=== PATIENT | male | born 1970 | race Hispanic/Latino ===

== ENCOUNTER 2017-10-28 14:30 | Inpatient (IN) | payer BC, OTHER ==
[~2017-10-28] VITALS: Ht 170.2 cm; Wt 83.5 kg
[2018-10-06 14:26] VITALS: BP 155/85
[2018-10-06 14:37] LABS: INR 1.02 (0.85-1.15); PARTIAL THROMBOPLASTIN TIME 28.7 SEC (26.3-35.5); PROTHROMBIN TIME 10.7 SEC (9.6-11.6)
[2018-10-06] MEDS ORDERED: UMEC1DIS IH (14:54)
[2018-10-06] MEDS ORDERED: LISI-613 PO (14:54)
[2018-10-06] MEDS ORDERED: OZEMPIC SQ (14:54)
[2018-10-06] MEDS ORDERED: NAPR-1023 PO (14:54)
[2018-10-06] MEDS ORDERED: LEVO125T95 PO (14:54)
[2018-10-06] MEDS ORDERED: TRAM50TA4 PO (14:54)
[2018-10-06 14:56] LABS: APPEARANCE,URINE Clear (CLEAR); BILIRUBIN,URINE Negative (NEGATIVE); COLOR,URINE Yellow (YELLOW); GLUCOSE, URINE (UA) >=1000 mg/dL (NEGATIVE); KETONES,URINE Negative (NEGATIVE); LEUKOCYTE ESTERASE ,URINE Negative (NEGATIVE); NITRATE,URINE Negative (NEGATIVE); OCCULT BLOOD,URINE Negative (NEGATIVE); PROTEIN,URINE Negative (NEGATIVE); UROBILINOGEN,URINE 0.2 mg/dL (0.2-1.0)
[2018-10-06 15:18] LABS: BACTERIA,URINE Rare /HPF (None Seen); RBC,URINE None Seen /HPF (0-1); SQUAMOUS EPITHELIAL CELL,UR None Seen /HPF (0-2); WBC,URINE None Seen /HPF (0-1)
[2018-10-07] MEDS: CLINDAMYCIN 900 MG/D5% WATER 50 ML IV SCH (15:30)
[2018-10-08] MEDS: CLINDAMYCIN 900 MG/D5% WATER 50 ML IV SCH (15:30)
[2018-10-09] VITALS (21 sets, daily range): BP systolic 99–150; BP diastolic 66–99
[2018-10-09] MEDS: CLINDAMYCIN 900 MG/D5% WATER 50 ML IV SCH ×3 (08:00→15:30)
[2018-10-09] MEDS ORDERED: CLINDAMYCIN PHOSPHATE 150 MG/ML 6ML VIAL ONE (08:30)
[2018-10-09] MEDS ORDERED: ACETAMINOPHEN EXTRA STRENGTH 500 MG TABLET ONE (08:45)
[2018-10-09] MEDS ORDERED: METOCLOPRAMIDE 10 MG/2 ML VIAL ONE (08:45)
[2018-10-09] MEDS ORDERED: SODIUM CHLORIDE 0.9% 1000ML 1,000 ML IV ONE (08:46)
[2018-10-09] MEDS ORDERED: CELECOXIB 200 MG CAP ONE (08:46)
[2018-10-09] MEDS ORDERED: OXYCODONE HCL 10 MG TAB.SR.12H PO ONE (08:46)
[2018-10-09] MEDS ORDERED: KETOROLAC TROMETHAMINE 15MG/ML ONE (08:46)
--- NOTE | 2018-10-09 09:14 | NUR ---
POTENTIAL FOR INFECTION: SHAVED LEFT HIP FOLLOWED BY WIPING WITH OBINNA: 2% CHLORHEXIDINE GLUCONATE CLOTH PATIENTS PRE-OP PREP
[2018-10-09] MEDS ORDERED: TRANEXAMIC ACID 1000MG/10ML IV ONE ×2 (10:28→14:22)
[2018-10-09] MEDS ORDERED: ONDANSETRON HCL 4 MG/2 ML VIAL ONE (11:13)
[2018-10-09] MEDS ORDERED: SUCCINYLCHOLINE 200MG/10ML SYR ONE (11:13)
[2018-10-09] MEDS ORDERED: DEXAMETHASONE SOD PHOSPHATE 10MG/ML 1ML VIAL ONE (11:13)
[2018-10-09] MEDS ORDERED: LIDOCAINE PF 2% 5ML ABBOJECT ONE (11:13)
[2018-10-09] MEDS ORDERED: MIDAZOLAM HCL 1 MG/ML 2ML VIAL ONE (11:14)
[2018-10-09] MEDS ORDERED: NEOSTIGMINE 5MG/5ML SYR IV ONE (11:14)
[2018-10-09] MEDS ORDERED: PROPOFOL 10 MG/ML 20ML VIAL IV ONE (11:14)
[2018-10-09] MEDS ORDERED: GLYCOPYRROLATE 1 MG/5 ML SYRINGE ONE (11:14)
[2018-10-09] MEDS ORDERED: ROCURONIUM 10MG/1ML SYR 10 MG/ML ML ONE ×2 (11:14→12:27)
[2018-10-09] MEDS ORDERED: FENTANYL CITRATE PF 50 MCG/1 ML 2ML VIAL ONE ×2 (11:15→12:25)
[2018-10-09] MEDS ORDERED: VANCOMYCIN HCL 1 GM VIAL ONE (13:31)
[2018-10-09] MEDS ORDERED: POTASSIUM CHLORIDE 20 MEQ ERTAB PO PRN (14:00)
[2018-10-09] MEDS ORDERED: ONDANSETRON HCL 4 MG/2 ML VIAL IVP PRN (14:00)
[2018-10-09] MEDS ORDERED: KETOROLAC TROMETHAMINE 15MG/ML IV PRN (14:00)
[2018-10-09] MEDS ORDERED: DiphenhydrAMINE HCL 50 MG/ML VIAL IVP PRN (14:00)
[2018-10-09] MEDS ORDERED: FERROUS FUMARATE 324 MG TABLET PO PRN (14:00)
[2018-10-09] MEDS ORDERED: CALCIUM CARBONATE 500 MG TABLET PO PRN (14:00)
[2018-10-09] MEDS ORDERED: TEMAZEPAM 15 MG CAPSULE PO PRN (14:00)
[2018-10-09] MEDS ORDERED: LIDOCAINE HCL-MPF 1% 2ML VIAL IVP PRN (14:00)
[2018-10-09] MEDS ORDERED: POTASSIUM CHLORIDE 20MEQ/100ML 100 ML IV PRN (14:00)
[2018-10-09] MEDS ORDERED: TRAMADOL HCL 50 MG TABLET PO PRN (14:00)
[2018-10-09] MEDS ORDERED: POTASSIUM CHLORIDE 10% ELIXIR 20 MEQ/15 ML UDCUP PO PRN (14:00)
[2018-10-09] MEDS: ACETAMINOPHEN EXTRA STRENGTH 500 MG TABLET PO SCH ×2 (14:00→23:20)
[2018-10-09] MEDS ORDERED: LABETALOL 20 MG/4 ML DISP.SYRIN IV ONE (14:36)
--- NOTE | 2018-10-09 15:17 | NUR ---
POST SURGERY RECEIVED FROM PACU IN STABLE CONDITION. NO C/O PAIN AT THIS TIME. DRESSING TO THE LEFT HIP IS DRY AND INTACT. FAMILY IS PRESENT IN ROOM. ALL HAVE BEEN ORIENTED TO ROOM AND USE OF CALL LIGHT. POST OP VITAL SIGNS HAVE BEEN INITIATED. BED IS IN LOWEST POSITION AND LOCKED WITH PERSONAL BELONGINGS WITHIN REACH. WILL CONTINUE TO MONITOR.
--- NOTE | 2018-10-09 16:10 | NUR ---
DCP CM met with pt and spouse discussed dc plans. Pt is independent prior to admission, lives at home with spouse and son. Denies any equipments/services. Pt agreeable for home w/HH and DME, DENIZ signed for [facility] HH and [facility] DME. Faxed order and clinicals to [facility] HH and [facility] DME. Pt pending approval for HH as well as approval and delivery for standard walker and 3 in 1 chair w/[employer]. DC plan to home w/HH and DME. CM to cont to follow up. Addendum: 10/09/18 at 1612 by ALTAGRACIA WARD LVN CM Amended: Links added.
[2018-10-09] MEDS: SODIUM CHLORIDE 0.9% 1000ML 1,000 ML IV SCH ×2 (16:57→23:19)
[2018-10-09] MEDS: OXYCODONE HCL 5 MG TAB PO PRN ×2 (17:54→23:21)
[2018-10-09] MEDS: IPRATROPIUM/ALBUTEROL SULFATE 3 ML SOLUTION IH SCH (18:12)
[2018-10-09] MEDS ORDERED: GLUCAGON 1MG KIT 1 MG ML IM PRN (18:15)
[2018-10-09] MEDS ORDERED: DEXTROSE 50%-WATER 50 ML DISP.SYRIN IV PRN (18:15)
[2018-10-09] MEDS: ASPIRIN 325 MG TABLET PO SCH (20:05)
[2018-10-09] MEDS: PREGABALIN 25 MG CAP PO SCH (20:05)
[2018-10-09] MEDS: CELECOXIB 200 MG CAP PO SCH (20:05)
[2018-10-09] MEDS: LISINOPRIL 20 MG TABLET PO SCH (20:05)
[2018-10-09] MEDS: FAMOTIDINE 20MG TAB 20 MG TAB PO SCH (20:05)
[2018-10-09] MEDS: CLINDAMYCIN 900 MG/D5% WATER 50 ML IVPB SCH (20:08)
[2018-10-09] MEDS: INSULIN HUMULIN R 100 UNIT/ML 3ML SQ SCH (20:14)
[2018-10-10] VITALS (7 sets, daily range): BP systolic 104–122; BP diastolic 60–75
[2018-10-10] MEDS: IPRATROPIUM/ALBUTEROL SULFATE 3 ML SOLUTION IH SCH ×4 (00:19→19:00)
[2018-10-10] MEDS: CLINDAMYCIN 900 MG/D5% WATER 50 ML IVPB SCH (02:56)
[2018-10-10 04:26] LABS: HEMATOCRIT 32.7 % (42-54); MEAN CORPUSCULAR HEMOGLOBIN 30.1 pg (27.0-33.0); MEAN CORPUSCULAR HGB CONC 36.3 g/dL (32.0-36.0); PLATELET COUNT (AUTO) 169 K/uL (130-400); RED BLOOD CELL COUNT(AUTO) 3.94 MIL/uL (4.50-6.20); RED CELL DISTRIBUTION WIDTH 14.9 % (11.0-15.5); WHITE BLOOD COUNT (AUTO) 10.9 K/uL (4.8-10.8)
[2018-10-10 04:49] LABS: CREATININE 0.9 mg/dL (0.5-1.5); POTASSIUM 4.2 mmol/L (3.5-5.1)
[2018-10-10] MEDS ORDERED: LEVOTHYROXINE 125 MCG TABLET ONE (05:08)
[2018-10-10] MEDS: LEVOTHYROXINE 125 MCG TABLET PO SCH (05:09)
[2018-10-10] MEDS: ACETAMINOPHEN EXTRA STRENGTH 500 MG TABLET PO SCH ×3 (05:09→21:19)
[2018-10-10] MEDS: INSULIN HUMULIN R 100 UNIT/ML 3ML SQ SCH ×7 (05:33→20:30)
[2018-10-10] MEDS: TAMSULOSIN HCL 0.4 MG CAP.ER.24H PO SCH (09:00)
[2018-10-10] MEDS: FAMOTIDINE 20MG TAB 20 MG TAB PO SCH ×2 (09:40→19:43)
[2018-10-10] MEDS: PREGABALIN 25 MG CAP PO SCH ×2 (09:40→19:42)
[2018-10-10] MEDS: POLYETHYLENE GLYCOL 3350 17 GM POWD.PACK PO SCH (09:40)
[2018-10-10] MEDS: CELECOXIB 200 MG CAP PO SCH ×2 (09:41→19:42)
[2018-10-10] MEDS: ASPIRIN 325 MG TABLET PO SCH ×2 (09:41→19:42)
[2018-10-10] MEDS: OXYCODONE HCL 5 MG TAB PO PRN ×3 (09:48→23:55)
[2018-10-10] MEDS: SODIUM CHLORIDE 0.9% 1000ML 1,000 ML IV SCH (09:58)
--- NOTE | 2018-10-10 13:13 | NUR ---
CM Note: [facility] approval and acceptance Spoke to Duc kingston/JACK RODRIGUEZ, pt has approval and acceptance. Primary nurse aware. CM to cont to follow up.
--- NOTE | 2018-10-10 13:14 | NUR ---
CM Note: [facility] DME approval for standard walker and 3 in 1 chair, pending delivery in pt room Spoke to [facility], pt has been approved for standard walker and 3 in 1 chair, will have dme delivered in pt's room today. Primary nurse made aware. Safe to DC to home via private car once DME delivered. CM to cont to follow up.
[2018-10-10] MEDS: LISINOPRIL 20 MG TABLET PO SCH (19:43)
[2018-10-11] MEDS: IPRATROPIUM/ALBUTEROL SULFATE 3 ML SOLUTION IH SCH ×3 (00:09→11:17)
[2018-10-11 04:00] VITALS: BP 127/82
[2018-10-11] MEDS: OXYCODONE HCL 5 MG TAB PO PRN ×3 (04:26→14:47)
[2018-10-11] MEDS: ACETAMINOPHEN EXTRA STRENGTH 500 MG TABLET PO SCH ×2 (05:20→14:47)
[2018-10-11] MEDS: LEVOTHYROXINE 125 MCG TABLET PO SCH (05:20)
[2018-10-11] MEDS: INSULIN HUMULIN R 100 UNIT/ML 3ML SQ SCH ×6 (05:25→16:30)
[2018-10-11 07:50] VITALS: BP 139/89
[2018-10-11] MEDS: TAMSULOSIN HCL 0.4 MG CAP.ER.24H PO SCH (09:00)
[2018-10-11] MEDS: POLYETHYLENE GLYCOL 3350 17 GM POWD.PACK PO SCH (09:23)
[2018-10-11] MEDS: CELECOXIB 200 MG CAP PO SCH (09:23)
[2018-10-11] MEDS: PREGABALIN 25 MG CAP PO SCH (09:23)
[2018-10-11] MEDS: FAMOTIDINE 20MG TAB 20 MG TAB PO SCH (09:23)
[2018-10-11] MEDS: ASPIRIN 325 MG TABLET PO SCH (09:23)
[2018-10-11 11:39] VITALS: BP 107/76
[2018-10-11] MEDS ORDERED: HYDR-4457 PO (12:27)
[2018-10-11] MEDS ORDERED: ASPI-1012 PO (12:27)
[2018-10-11 16:32] VITALS: BP 116/76
--- NOTE | 2018-10-11 18:30 | NUR ---
DISCHARGE TEACHING DONE WITH PATIENT, VERBALIZED UNDERSTANDING. NO NOTED SOB OR DISTRESS. NEW MEDICATION ADMINISTRATION TEACHING DONE WITH PATIENT, VERBALIZED UNDERSTANDING. PT AWARE OF NEED TO ATTEND DR. SERRANO APPOINTMENT. LEFT HIP DRESSING CHANGED, INCISION IS DRY AND INTACT. IV REMOVED, CATH TIP INTACT. REPORT GIVEN TO SAMMI BOB, FROM [facility], INSTRUCTED ON DRESSING CHANGES, PER DR. SERRANO
[2018-10-12] MEDS ORDERED: BISACODYL 10 MG SUPP.RECT RC PRN (14:00)
[2018-10-16] MEDS ORDERED: OZEMPIC 0.25 MG SQ SCH (09:00)
== END 2018-10-11 18:35 | disposition home health service (06) | DRG 470 ==
LOC: EDSTATUS 10-06 13:00 → DAHIP 10-09 07:18 → 4AH 10-09 14:23
PROVIDERS: ADMIT Orthopaedic Surgery; ATTEND Orthopaedic Surgery
PROC: 0SRB0JZ Replacement of Left Hip Joint with Synthetic Substitute, Open Approach (ICD-10-PCS; principal; 2018-10-09 11:50)
PROC: 3E0T3BZ Introduction of Anesthetic Agent into Peripheral Nerves and Plexi, Percutaneous Approach (ICD-10-PCS; 2018-10-09 11:50)
DX: M16.12 Unilateral primary osteoarthritis, left hip (principal); E03.9 Hypothyroidism, unspecified; I10 Essential (primary) hypertension; Z96.641 Presence of right artificial hip joint; E11.40 Type 2 diabetes mellitus with diabetic neuropathy, unspecified; I49.9 Cardiac arrhythmia, unspecified; E78.2 Mixed hyperlipidemia; J44.9 Chronic obstructive pulmonary disease, unspecified; E11.319 Type 2 diabetes mellitus with unspecified diabetic retinopathy without macular edema; Z79.891 Long term (current) use of opiate analgesic; Z88.0 Allergy status to penicillin
CPT/HCPCS: 36415; 73503; 80048; 81001; 82948; 85027; 85610; 85730; 86850; 86900; 86901; 88304; 88311; 94640; 94664; 96374; 96375; 97039; C1776; G0378; J0330; J1100; J1815; J1885; J2001; J2250; J2405; J2704; J2710; J2765; J3010; J3370; J3490; J7030

== ENCOUNTER → 2018-07-10 | Outpatient (CLI) | payer BC ==
[2018-07-10 10:58] LABS: CREATININE 0.7 mg/dL (0.5-1.5)
== END | disposition home or self-care (01) ==
LOC: LAB 10:08
PROVIDERS: ATTEND Internal Medicine
DX: K57.93 Diverticulitis of intestine, part unspecified, without perforation or abscess with bleeding (principal)
CPT/HCPCS: 36415; 82565; 84520

== ENCOUNTER → 2018-07-11 | Outpatient (CLI) | payer BC ==
[~2018-07-11] MED LIST: IOHEXOL-350 75 ML VIAL IV ONE
== END | disposition home or self-care (01) ==
LOC: RAH 08:31
PROVIDERS: ATTEND Internal Medicine
DX: R16.2 Hepatomegaly with splenomegaly, not elsewhere classified (principal); M47.815 Spondylosis without myelopathy or radiculopathy, thoracolumbar region; I70.90 Unspecified atherosclerosis; K57.93 Diverticulitis of intestine, part unspecified, without perforation or abscess with bleeding
CPT/HCPCS: 74177; Q9967

== ENCOUNTER → 2018-09-28 | Outpatient (CLI) | payer BC | END | disposition home or self-care (01) | LOC: RAH 12:54 | PROVIDERS: ATTEND Internal Medicine | DX: R09.89 Other specified symptoms and signs involving the circulatory and respiratory systems (principal) | CPT/HCPCS: 93922 ==

== ENCOUNTER → 2021-10-01 | Outpatient (CLI) | payer OTHER ==
[~2021-10-01] MED LIST changes: +ASPI-1012 PO; +HYDR-4457 PO; -IOHEXOL-350 75 ML VIAL IV ONE; +LEVO125T95 PO; +LISI20TA24 PO; +OZEMPIC SQ; +UMEC1DIS IH
== END | disposition home or self-care (01) ==
LOC: SHCH 10:28
PROVIDERS: ATTEND Internal Medicine Cardiovascular Disease
DX: I08.0 Rheumatic disorders of both mitral and aortic valves (principal); I11.9 Hypertensive heart disease without heart failure; E11.9 Type 2 diabetes mellitus without complications; E66.9 Obesity, unspecified; R60.9 Edema, unspecified
CPT/HCPCS: 93306

== ENCOUNTER → 2024-04-23 | Outpatient (CLI) | payer OTHER | END | disposition home or self-care (01) | LOC: SHCH 15:06 | PROVIDERS: ATTEND Internal Medicine Cardiovascular Disease | DX: R01.1 Cardiac murmur, unspecified (principal) | CPT/HCPCS: 93306 ==

== ENCOUNTER → 2024-06-01 | Outpatient (CLI) | payer OTHER | END | disposition home or self-care (01) | LOC: SHCH 09:55 | PROVIDERS: ATTEND Internal Medicine Cardiovascular Disease | DX: I87.2 Venous insufficiency (chronic) (peripheral) (principal) | CPT/HCPCS: 93970 ==

== ENCOUNTER → 2024-09-10 | Outpatient (CLI) | payer OTHER ==
[~2024-09-10] MED LIST changes: +ALBUMIN HUMAN 25% 200 ML IV ONE
[2024-09-10 11:31] LABS: BASOPHILS # (AUTO) 0.03 K/uL (0.00-0.20); BASOPHILS % (AUTO) 0.5 % (0.0-5.0); EOSINOPHILS % (AUTO) 1.8 % (0.0-8.0); HEMATOCRIT 32.9 % (42-54); IMMATURE GRANULOCYTE ABSOLUTE 0.02 K/uL (0-1); LYMPHOCYTES # (AUTO) 1.3 K/uL (1.0-4.8); LYMPHOCYTES % (AUTO) 22.6 % (21.0-51.0); MEAN CORPUSCULAR HEMOGLOBIN 30.7 pg (27.0-33.0); MEAN CORPUSCULAR VOLUME 90.1 fL (79-99); MONOCYTES # (AUTO) 0.3 K/uL (0.1-1.0); NEUTROPHILS # (AUTO) 3.8 K/uL (1.8-7.7); NEUTROPHILS % (AUTO) 68.7 % (40.0-77.0); PLATELET COUNT (AUTO) 92 K/uL (130-400); RED BLOOD CELL COUNT(AUTO) 3.65 MIL/uL (4.50-6.20); RED CELL DISTRIBUTION WIDTH 14.6 % (11.0-15.5); WHITE BLOOD COUNT (AUTO) 5.5 K/uL (4.8-10.8)
[2024-09-10 11:50] LABS: INR 1.33 (0.85-1.15); PROTHROMBIN TIME 13.7 SEC (9.6-11.6)
--- NOTE | 2024-09-10 12:00 | NUR ---
U/S GD PARACENTESIS TOLERATED PROCEDURE. PERFORMED BY DR Dieter TOPETE. PUNCTURE SITE TO RLQ. 7.8 LITERS OF YELLOW CLOUDY ASCITES FLUID REMOVED AND SENT TO LAB. ALBUMIN 25% 50 GRAMS GIVEN IV. END OF PROCEDURE AT 1140. DRESSING DRY AND INTACT. DISCHARGE INSTRUCTIONS GIVEN. VERBALIZED UNDERSTANDING. DISCHARGE VIA AMBULATORY. DENIES PAIN. A&O.
[2024-09-10 12:07] LABS: ALBUMIN 3.2 g/dL (3.5-5.0); BILIRUBIN,TOTAL 1.1 mg/dL (0.2-1.0); CREATININE 0.8 mg/dL (0.5-1.3); POTASSIUM 4.2 mmol/L (3.5-5.1)
[2024-09-10] MEDS: ALBUMIN HUMAN 25% 200 ML IV ONE (14:47)
--- NOTE | 2024-09-10 15:44 | HMCIMG ---
ULTRASOUND GUIDED PARACENTESIS: INDICATION: Ascites TECHNIQUE: Informed consent was obtained. Timeout performed. All elements of maximal sterile barrier technique, including hand hygiene and cutaneous antisepsis were used. Patient was placed supine. Right lower quadrant was prepped and draped in sterile fashion. Local anesthesia was applied. Then, under ultrasound guidance, a 5F centesis needle was advanced through the abdominal wall and into a pocket of fluid in the peritoneum. It yielded 7.8 L of fluid. The catheter was removed and sterile dressing applied. Blood pressure monitoring was performed during the procedure. Complications: None Blood loss: <5 mL. IMPRESSION: Successful ultrasound guided paracentesis.
[2024-09-10 16:26] LABS: BODY FLUID RBC 1731 /cu. mm.; BODY FLUID WBC 496 /cu. mm.
[2024-09-10 16:32] LABS: APPEARANCE BODY FLUID SLIGHTLY CLOUDY (CLEAR); COLOR,BODY FLUID YELLOW (LT YELLOW); SPECIMENTYPE,BODY FLUID ASCITES; TOTAL VOLUME,BODY FLUID 7800 mL
[2024-09-10 20:07] LABS: BF LYMPHOCYTE 30 %; BF MACROPHAGE 34; BF MONOCYTE 3 %; BF OTHER CELLS 3; BF TOTAL CELLS COUNTED 100
== END | disposition home or self-care (01) ==
LOC: RAH 10:24
PROVIDERS: ATTEND Internal Medicine
DX: R18.8 Other ascites (principal); K74.60 Unspecified cirrhosis of liver; K64.0 First degree hemorrhoids; K59.04 Chronic idiopathic constipation; J44.9 Chronic obstructive pulmonary disease, unspecified; I10 Essential (primary) hypertension; E03.9 Hypothyroidism, unspecified; E66.9 Obesity, unspecified; E13.9 Other specified diabetes mellitus without complications; Z79.899 Other long term (current) drug therapy; Z68.37 Body mass index [BMI] 37.0-37.9, adult
CPT/HCPCS: 49083; 80053; 85025; 89051; 85610; 85730; 87071; 87205; 36415; P9046; C1729

== ENCOUNTER → 2024-10-02 | Outpatient (CLI) | payer OTHER ==
--- NOTE | 2024-10-02 09:25 | NUR ---
U/S GD PARACENTESIS TOLERATED PROCEDURE. PERFORMED BY DR Laci SORIA. PUNCTURE SITE TO RLQ. 9.0 LITERS OF YELLOW CLOUDY FLUID REMOVED AND SENT TO LAB. ALBUMIN 25% 50 GRAMS GIVEN IV. END OF PROCEDURE AT 0905. DRESSING DRY AND INTACT. NO BLEEDING NOTED. DISCHARGE INSTRUCTIONS GIVEN. VERBALIZED UNDERSTANDING. DENIES PAIN. A&&O. DISCHARGE VIA AMBULATORY.
[2024-10-02] MEDS: ALBUMIN HUMAN 25% 200 ML IV ONE (10:27)
--- NOTE | 2024-10-02 11:27 | HMCIMG ---
US ABDOMINAL PARACENTESIS IR HISTORY: Ascites COMPARISON: None TECHNIQUE: Informed consent was obtained. Risks and benefits were explained to the patient. A timeout was performed. Patient was prepped and draped in a sterile fashion. Local anesthetics was given as required. Under ultrasound guidance, ascites fluid was localized. Paracentesis was performed. FINDINGS: 9 L of yellowish fluid was aspirated. Less than 2 cc blood loss is noted. Patient tolerated procedure without complication. Patient left the department in good condition. IMPRESSION: 1. Uncomplicated ultrasound guidance paracentesis.
[2024-10-02 13:59] LABS: ALBUMIN,BODY FLUID 1.3 g/dL; TOTAL PROTEIN,BODY FLUID 2.7 g/dL
[2024-10-02 14:04] LABS: BODY FLUID RBC 1147 /cu. mm.; BODY FLUID WBC 213 /cu. mm.
[2024-10-02 15:36] LABS: COLOR,BODY FLUID DARK YELLOW (LT YELLOW); TOTAL VOLUME,BODY FLUID 9000 mL
[2024-10-02 15:48] LABS: BF LYMPHOCYTE 49 %; BF MACROPHAGE 8; BF MESOTHELIAL 10 %; BF MONOCYTE 9 %; BF TOTAL CELLS COUNTED 100
[2024-10-02 15:49] LABS: APPEARANCE BODY FLUID SLIGHTLY CLOUDY (CLEAR); SPECIMENTYPE,BODY FLUID ASCITES
== END | disposition home or self-care (01) ==
LOC: RAH 07:59
PROVIDERS: ATTEND Internal Medicine
DX: R18.8 Other ascites (principal); K74.60 Unspecified cirrhosis of liver
CPT/HCPCS: 49083; 84157; 89051; 87071; 87076; 87205; 82042; 88108; 88305; P9046; C1729; 96365

== ENCOUNTER → 2024-11-12 | Outpatient (CLI) | payer OTHER ==
--- NOTE | 2024-11-12 11:00 | NUR ---
U/S GD PARACENTESIS PROCEDURE PERFORMED BY DR Dieter TOPETE. PUNCTURE SITE RLQ AND PATIENT TOLERATED PROCEDURE WELL. TOTAL REMOVED 9 LITERS OF CLOUDY YELLOW FLUID. ALBUMIN 25% 50 GRAMS IV GIVEN DURING PROCEDURE. SPECIMEN SENT TO LAB. END OF PROCEDURE AT 1030. CATHETER REMOVED AND DRESSING APPLIED. NO BLEEDING NOTED. DISCHARGE INSTRUCTIONS GIVEN TO PATIENT AND VERBALIZED UNDERSTANDING. DISCHARGED VIA AMBULATION AT 1100. AAO X3 WITH NO C/O PAIN.
[2024-11-12] MEDS: ALBUMIN HUMAN 25% 200 ML IV ONE (11:11)
--- NOTE | 2024-11-12 12:33 | HMCIMG ---
ULTRASOUND GUIDED PARACENTESIS: INDICATION: Ascites TECHNIQUE: Informed consent was obtained. Timeout performed. All elements of maximal sterile barrier technique, including hand hygiene and cutaneous antisepsis were used. Patient was placed supine. Right lower quadrant was prepped and draped in sterile fashion. Local anesthesia was applied. Then, under ultrasound guidance, a 5F centesis needle was advanced through the abdominal wall and into a pocket of fluid in the peritoneum. It yielded 9 L of fluid. The catheter was removed and sterile dressing applied. Blood pressure monitoring was performed during the procedure. Complications: None Blood loss: <5 mL. IMPRESSION: Successful ultrasound guided paracentesis.
[2024-11-12 13:44] LABS: APPEARANCE BODY FLUID SLIGHTLY CLOUDY (CLEAR); COLOR,BODY FLUID YELLOW (LT YELLOW); SPECIMENTYPE,BODY FLUID ASCITES; TOTAL VOLUME,BODY FLUID 9000 mL
[2024-11-12 13:48] LABS: ALBUMIN,BODY FLUID 1.4 g/dL; TOTAL PROTEIN,BODY FLUID 2.7 g/dL
[2024-11-12 14:41] LABS: BODY FLUID RBC 251 /cu. mm.; BODY FLUID WBC 415 /cu. mm.
[2024-11-12 16:20] LABS: BF LYMPHOCYTE 96 %; BF TOTAL CELLS COUNTED 100
== END ==
LOC: RAH 09:15
PROVIDERS: ATTEND Internal Medicine Gastroenterology
DX: R18.8 Other ascites (principal); K74.60 Unspecified cirrhosis of liver; J44.9 Chronic obstructive pulmonary disease, unspecified; I10 Essential (primary) hypertension; E03.9 Hypothyroidism, unspecified; D64.9 Anemia, unspecified; K59.04 Chronic idiopathic constipation; K64.0 First degree hemorrhoids; E13.9 Other specified diabetes mellitus without complications; Z79.899 Other long term (current) drug therapy; Z79.890 Hormone replacement therapy; Z88.0 Allergy status to penicillin
CPT/HCPCS: 49083; 84157; 89051; 87071; 87205; 82042; 88108; 88305; P9046; C1729; 96365

== ENCOUNTER → 2024-12-10 | Outpatient (CLI) | payer OTHER ==
[2024-12-10 11:36] LABS: BASOPHILS # (AUTO) 0.04 K/uL (0.00-0.20); EOSINOPHILS # (AUTO) 0.08 K/uL (0.00-0.70); HEMATOCRIT 32.1 % (42-54); IMMATURE GRANULOCYTE ABSOLUTE 0.01 K/uL (0-1); LYMPHOCYTES # (AUTO) 1.3 K/uL (1.0-4.8); LYMPHOCYTES % (AUTO) 32.7 % (21.0-51.0); MEAN CORPUSCULAR HEMOGLOBIN 29.4 pg (27.0-33.0); MEAN CORPUSCULAR HGB CONC 35.2 g/dL (32.0-36.0); MEAN CORPUSCULAR VOLUME 83.6 fL (79-99); MONOCYTES # (AUTO) 0.3 K/uL (0.1-1.0); MONOCYTES % (AUTO) 6.6 % (3.0-13.0); NEUTROPHILS # (AUTO) 2.3 K/uL (1.8-7.7); NEUTROPHILS % (AUTO) 57.4 % (40.0-77.0); PLATELET COUNT (AUTO) 123 K/uL (130-400); RED BLOOD CELL COUNT(AUTO) 3.84 MIL/uL (4.50-6.20); RED CELL DISTRIBUTION WIDTH 14.3 % (11.0-15.5)
[2024-12-10 11:41] LABS: INR 1.29 (0.85-1.15); PROTHROMBIN TIME 13.3 SEC (9.6-11.6)
[2024-12-10 11:43] LABS: PARTIAL THROMBOPLASTIN TIME 32.6 SEC (26.3-35.5)
[2024-12-10 11:44] LABS: BILIRUBIN,TOTAL 0.8 mg/dL (0.2-1.0); CREATININE 0.7 mg/dL (0.5-1.3); MAGNESIUM 1.6 mg/dL (1.80-2.40); PHOSPHORUS 3.4 mg/dL (2.5-4.9); POTASSIUM 4.3 mmol/L (3.5-5.1); TOTAL PROTEIN, SERUM 7.3 g/dL (6.0-8.3)
--- NOTE | 2024-12-10 12:00 | NUR ---
U/S GD PARACENTESIS PROCEDURE PERFORMED BY DR DR SORIA. PUNCTURE SITE LLQ AND PATIENT TOLERATED PROCEDURE WELL. TOTAL REMOVED 10.7 LITERS OF YELLOW CLOUDY ASCITES FLUID. ALBUMIN 25% 50 GRAMS IV GIVEN DURING PROCEDURE. SPE[place]IM[place] [address]. CATHETER REMOVED AND DRESSING APPLIED. NO BLEEDING NOTED. DISCHARGE INSTRUCTIONS GIVEN TO PATIENT AND VERBALIZED UNDERSTANDING. DISCHARGED VIA AMBULATORY. AAO X3 WITH NO C/O PAIN.
[2024-12-10 14:02] LABS: ALBUMIN,BODY FLUID 1.4 g/dL; TOTAL PROTEIN,BODY FLUID 2.9 g/dL
[2024-12-10 14:24] LABS: APPEARANCE BODY FLUID CLEAR (CLEAR); COLOR,BODY FLUID YELLOW (LT YELLOW); SPECIMENTYPE,BODY FLUID ASCITES; TOTAL VOLUME,BODY FLUID 10700 mL
[2024-12-10 14:52] LABS: BODY FLUID RBC 174 /cu. mm.; BODY FLUID WBC 415 /cu. mm.
[2024-12-10] MEDS: ALBUMIN HUMAN 25% 200 ML IV ONE (15:40)
[2024-12-10 18:30] LABS: BF LYMPHOCYTE 26 %; BF MACROPHAGE 49; BF MESOTHELIAL 1 %; BF OTHER CELLS 2; BF TOTAL CELLS COUNTED 100
--- NOTE | 2024-12-10 18:44 | HMCIMG ---
US ABDOMINAL PARACENTESIS IR HISTORY: Ascites COMPARISON: None TECHNIQUE: Informed consent was obtained. Risks and benefits were explained to the patient. A timeout was performed. Patient was prepped and draped in a sterile fashion. Local anesthetics was given as required. Under ultrasound guidance, ascites fluid was localized. Paracentesis was performed FINDINGS: 10.7 mL of yellowish fluid was aspirated. Less than 2 cc blood loss is noted. Patient tolerated procedure without complication. Patient left the department in good condition. IMPRESSION: 1. Uncomplicated ultrasound guidance paracentesis.
== END | disposition home or self-care (01) ==
LOC: RAH 10:22
PROVIDERS: ATTEND Internal Medicine
DX: R18.8 Other ascites (principal); K74.60 Unspecified cirrhosis of liver; K64.0 First degree hemorrhoids; K59.04 Chronic idiopathic constipation; I10 Essential (primary) hypertension; J44.9 Chronic obstructive pulmonary disease, unspecified; D64.9 Anemia, unspecified; E11.9 Type 2 diabetes mellitus without complications; E03.9 Hypothyroidism, unspecified; Z79.899 Other long term (current) drug therapy
CPT/HCPCS: 49083; 83735; 84100; 84157; 80053; 85025; 89051; 85610; 85730; 87071; 87076; 87205; 82105; 82042; 36415; 88108; 88305; P9046; C1729; 96365

== ENCOUNTER → 2024-12-17 | Outpatient (CLI) | payer OTHER ==
[~2024-12-17] MED LIST changes: -ALBUMIN HUMAN 25% 200 ML IV ONE
--- NOTE | 2024-12-17 09:00 | NUR ---
U/S GD PARACENTESIS NOT DONE U/S PERFORMED BY Abraham CASANOVA RDMS. IMAGES REVIEWED BY DR Laci SORIA. PER DR SORIA NOT ENOUGH FLUID TO PERFORM PARACENTESIS SAFELY. INFORMED PT. PT VERBALIZED UNDERSTANDING. DISCHARGE VIA AMBULATORY. DENIES PAIN. A&O.
--- NOTE | 2024-12-17 10:14 | HMCIMG ---
US ABD LIMITED/ABD WALL REASON: ASCITES. COMPARISON: None TECHNIQUE: Ultrasound images of the abdomen were obtained for paracentesis purpose. FINDINGS: Small ascites is seen. Paracentesis was not performed. IMPRESSION: Small ascites. Paracentesis was not performed.
== END | disposition home or self-care (01) ==
LOC: RAH 08:20
PROVIDERS: ATTEND Internal Medicine
DX: R18.8 Other ascites (principal)
CPT/HCPCS: 76705

== ENCOUNTER → 2025-01-02 | Outpatient (CLI) | payer OTHER ==
[~2025-01-02] MED LIST changes: +ALBUMIN HUMAN 25% 200 ML IV ONE
--- NOTE | 2025-01-02 10:05 | NUR ---
U/S GD PARACENTESIS PROCEDURE PERFORMED BY DR PUTNAM. PUNCTURE SITE LLQ AND PATIENT TOLERATED PROCEDURE WELL. TOTAL REMOVED 6.7 LITERS OF YELLOW CLOUDY ASCITES FLUID. ALBUMIN 25% 50 GRAMS IV GIVEN DURING PROCEDURE. SPECIMEN SENT TO LAB. END OF PROCEDURE AT 0945. CATHETER REMOVED AND DRESSING APPLIED. NO BLEEDING NOTED. DISCHARGE INSTRUCTIONS GIVEN TO PATIENT AND VERBALIZED UNDERSTANDING. DISCHARGED VIA AMBULATORY. AAO X3 WITH NO C/O PAIN.
[2025-01-02] MEDS: ALBUMIN HUMAN 25% 200 ML IV ONE (10:26)
[2025-01-02 13:07] LABS: ALBUMIN,BODY FLUID 1.4 g/dL; TOTAL PROTEIN,BODY FLUID 2.8 g/dL
[2025-01-02 13:18] LABS: BODY FLUID RBC 759 /cu. mm.; BODY FLUID WBC 510 /cu. mm.
--- NOTE | 2025-01-02 13:39 | HMCIMG ---
US ABDOMINAL PARACENTESIS IR REASON: ASCITES TECHNIQUE: Paracentesis was performed with ultrasound guidance. The puncture site was selected in the Right lower quadrant and overlying skin prepped and draped in a sterile fashion. 1% Xylocaine infiltration was performed. Catheter was placed in the fluid using trocar technique. 6.7 L were removed. Fluid sample was submitted for laboratory evaluation. The patient showed no evidence of complication during the procedure. Patient tolerated procedure well IMPRESSION: 1. Ultrasound-guided paracentesis.
[2025-01-02 14:10] LABS: COLOR,BODY FLUID YELLOW (LT YELLOW); SPECIMENTYPE,BODY FLUID ASCITES; TOTAL VOLUME,BODY FLUID 6700 mL
[2025-01-02 14:11] LABS: APPEARANCE BODY FLUID SLIGHTLY CLOUDY (CLEAR)
[2025-01-02 15:09] LABS: BF LYMPHOCYTE 68 %; BF MESOTHELIAL 7 %; BF NEUTROPHIL 25.0 %; BF TOTAL CELLS COUNTED 100
== END | disposition home or self-care (01) ==
LOC: RAH 08:32
PROVIDERS: ATTEND Internal Medicine
DX: R18.8 Other ascites (principal); J44.9 Chronic obstructive pulmonary disease, unspecified; I10 Essential (primary) hypertension; E03.9 Hypothyroidism, unspecified; E13.9 Other specified diabetes mellitus without complications; K64.0 First degree hemorrhoids; K74.60 Unspecified cirrhosis of liver; Z96.643 Presence of artificial hip joint, bilateral; K59.04 Chronic idiopathic constipation; Z88.0 Allergy status to penicillin; Z90.49 Acquired absence of other specified parts of digestive tract; Z79.899 Other long term (current) drug therapy
CPT/HCPCS: 49083; 84157; 89051; 87071; 87205; 82042; 88108; 88305; P9046; C1729; 96365

== ENCOUNTER → 2025-01-28 | Outpatient (CLI) | payer OTHER ==
[~2025-01-28] MED LIST changes: -ALBUMIN HUMAN 25% 200 ML IV ONE
[2025-01-28 09:43] LABS: IMMATURE GRANULOCYTE ABSOLUTE 0.00 K/uL (0-1); NUCLEATED RED BLOOD CELLS 0.0 % (0.0-0.19); PLATELET COUNT (AUTO) 96 K/uL (130-400); RED BLOOD CELL COUNT(AUTO) 3.97 MIL/uL (4.50-6.20); RED CELL DISTRIBUTION WIDTH 14.3 % (11.0-15.5); WHITE BLOOD COUNT (AUTO) 3.3 K/uL (4.8-10.8)
[2025-01-28 09:54] LABS: INR 1.2 (0.85-1.15)
--- NOTE | 2025-01-28 09:55 | NUR ---
U/S GD PARACENTESIS PROCEDURE PERFORMED BY DR PUTNAM. PUNCTURE SITE RLQ AND PATIENT TOLERATED PROCEDURE WELL. TOTAL REMOVED 8.0 LITERS OF YELLOW CLOUDY ASCITES FLUID. ALBUMIN 25% 50 GRAMS IV GIVEN DURING PROCEDURE. SPECIMEN SENT TO LAB. END OF PROCEDURE AT 0935. CATHETER REMOVED AND DRESSING APPLIED. NO BLEEDING NOTED. DISCHARGE INSTRUCTIONS GIVEN TO PATIENT AND VERBALIZED UNDERSTANDING. DISCHARGED VIA AMBULATORY. AAO X3 WITH NO C/O PAIN.
[2025-01-28 09:57] LABS: ASPARTATE AMINOTRANSFERASE 22.0 U/L (10-37); CREATININE 0.7 mg/dL (0.5-1.3); GLOMERULAR FILTR. RATE CALC 110.0 mL/min (>90); GLUCOSE,RANDOM 147.0 mg/dL (70-105); SODIUM SERUM 139.0 mmol/L (136-145); TOTAL PROTEIN, SERUM 7.0 g/dL (6.0-8.3); UREA NITROGEN, BLOOD 10.0 mg/dL (7-18)
[2025-01-28 12:53] LABS: APPEARANCE BODY FLUID CLEAR (CLEAR); COLOR,BODY FLUID YELLOW (LT YELLOW); SPECIMENTYPE,BODY FLUID ASCITES; TOTAL VOLUME,BODY FLUID 8000 mL
[2025-01-28 13:00] LABS: ALBUMIN,BODY FLUID 1.5 g/dL; TOTAL PROTEIN,BODY FLUID 2.8 g/dL
[2025-01-28 13:53] LABS: BODY FLUID RBC 648 /cu. mm.; BODY FLUID WBC 831 /cu. mm.
[2025-01-28] MEDS: ALBUMIN HUMAN 25% 200 ML IV ONE (14:23)
[2025-01-28 17:35] LABS: BF LYMPHOCYTE 36 %; BF MACROPHAGE 47; BF NEUTROPHIL 15.0 %; BF OTHER CELLS 2; BF TOTAL CELLS COUNTED 100
--- NOTE | 2025-01-29 07:56 | HMCIMG ---
US ABDOMINAL PARACENTESIS IR REASON: ASCITES TECHNIQUE: Paracentesis was performed with ultrasound guidance. The puncture site was selected in the Right lower quadrant and overlying skin prepped and draped in a sterile fashion. 1% Xylocaine infiltration was performed. Catheter was placed in the fluid using trocar technique. 8 L were removed. Fluid sample was submitted for laboratory evaluation. The patient showed no evidence of complication during the procedure. Patient tolerated procedure well IMPRESSION: 1. Ultrasound-guided paracentesis.
== END | disposition home or self-care (01) ==
LOC: RAH 08:39
PROVIDERS: ATTEND Internal Medicine
DX: R18.8 Other ascites (principal); J44.9 Chronic obstructive pulmonary disease, unspecified; I10 Essential (primary) hypertension; E03.9 Hypothyroidism, unspecified; K74.60 Unspecified cirrhosis of liver; D64.9 Anemia, unspecified; E13.9 Other specified diabetes mellitus without complications; K59.04 Chronic idiopathic constipation; K64.0 First degree hemorrhoids; Z96.643 Presence of artificial hip joint, bilateral; Z90.49 Acquired absence of other specified parts of digestive tract; Z88.0 Allergy status to penicillin; Z79.899 Other long term (current) drug therapy
CPT/HCPCS: 49083; 84157; 80053; 85025; 89051; 85610; 85730; 87071; 87205; 82042; 36415; 88108; 88305; P9046; C1729; 96365

== ENCOUNTER → 2025-06-17 | Outpatient (CLI) | payer BC ==
[2025-06-17] MEDS: ALBUMIN HUMAN 25% 200 ML IV ONE (09:43)
--- NOTE | 2025-06-17 09:45 | NUR ---
PARACENTESIS BY IR PROCEDURE PERFORMED BY DR Maritza PUTNAM, PUNCTURE SITE RLQ AND PATIENT TOLERATED PROCEDURE WELL. TOTAL REMOVED 12.8 LITERS OF CLOUDY YELLOW FLUID. SPECIMEND COLLECTED AND SENT TO LAB. ALBUMIN 25% 50 GRAMS IV GIVEN DURING PROCEDURE. END OF PROCEDURE AT 0910. CATHETER REMOVED AND DRESSING APPLIED. NO BLEEDING NOTED AND DRESSING DRY/INTACT. DISCHARGED VIA AMBULATION AT 0945.
[2025-06-17 11:11] LABS: APPEARANCE BODY FLUID CLEAR (CLEAR); COLOR,BODY FLUID YELLOW (LT YELLOW); SPECIMENTYPE,BODY FLUID ASCITES; TOTAL VOLUME,BODY FLUID 10000 mL
[2025-06-17 11:44] LABS: BODY FLUID RBC 396 /cu. mm.; BODY FLUID WBC 165 /cu. mm.
--- NOTE | 2025-06-17 12:14 | HMCIMG ---
US ABDOMINAL PARACENTESIS IR REASON: ASCITES TECHNIQUE: Paracentesis was performed with ultrasound guidance. The puncture site was selected in the Right lower quadrant and overlying skin prepped and draped in a sterile fashion. 1% Xylocaine infiltration was performed. Catheter was placed in the fluid using trocar technique. 12.8 L were removed. Fluid sample was submitted for laboratory evaluation. The patient showed no evidence of complication during the procedure. Patient tolerated procedure well IMPRESSION: 1. Ultrasound-guided paracentesis.
[2025-06-17 14:00] LABS: BF LYMPHOCYTE 55 %; BF MACROPHAGE 9; BF MESOTHELIAL 7 %; BF MONOCYTE 20 %; BF NEUTROPHIL 9.0 %; BF TOTAL CELLS COUNTED 100
== END | disposition home or self-care (01) ==
LOC: RAH 07:50
PROVIDERS: ATTEND Internal Medicine
DX: R18.8 Other ascites (principal); K74.60 Unspecified cirrhosis of liver; I10 Essential (primary) hypertension; J44.9 Chronic obstructive pulmonary disease, unspecified; E11.9 Type 2 diabetes mellitus without complications; E03.9 Hypothyroidism, unspecified; D64.9 Anemia, unspecified; K59.04 Chronic idiopathic constipation; K64.0 First degree hemorrhoids; Z96.643 Presence of artificial hip joint, bilateral; Z88.0 Allergy status to penicillin; Z90.49 Acquired absence of other specified parts of digestive tract; Z79.899 Other long term (current) drug therapy
CPT/HCPCS: 49083; 89051; P9046; C1729; 96365